=== PATIENT | female | born 1965 | race Caucasian/White ===

== ENCOUNTER 2017-04-12 12:43 | Emergency (ER) | payer OTHER ==
[~2017-04-12] VITALS: Ht 165.1 cm; Wt 60.3 kg
[2017-04-12 12:50] VITALS: TEMP 37.1; Ht 165.1 cm; Wt 60.3 kg
[2017-04-12] MEDS ORDERED: SODIUM CHLORIDE 0.9% 1000ML 1,000 ML IV STA (13:19)
[2017-04-12] MEDS ORDERED: ONDANSETRON INJ 2 MG/ML 2 ML VIAL IV STA (13:19)
[2017-04-12] MEDS ORDERED: OPTIRAY 320 IV PRN (13:30)
--- NOTE | 2017-04-12 13:45 | EMERGENCY ROOM VISIT NOTE ---
History First contact with patient: 13:05 Chief Complaint: HEADACHE Stated Complaint: WORST HEADACHE EVER, PAIN, NAUSEA History of Present Illness The patient is a 51 year old female who presents to the Emergency Room with complaints of a headache which began 3 days ago. The patient states that she had a gradual onset of a worsening headache beginning 3 days ago. She reports associated nausea, dizziness, and feeling "spacey." She states that yesterday, the headache worsens significantly throughout the day and she heard a "popping" noise in the right side of her head. She states the pain is concentrated in the right sikh. It feels like a dull pain in the entire right side of her head, with a sharp, stabbing pain in the right sikh. She does have a history of migraines but states that she has not had one in several years. She states this feels different from previous migraines. She has previously seen her primary care providers in the past and has not had an MRI of the brain. She rates her overall discomfort a 7/10. She denies any vomiting, numbness or weakness. She denies any recent illnesses or fevers/chills. She reports she is otherwise healthy and does not take any medications on a daily basis. She did not take any medications for her pain prior to coming here. Review of Systems A complete 10 point review of systems was reviewed with the patient with pertinent positives and negatives as per history of present illness. All else were negative. Past Medical/Surgical History Medical Problems: (1) Asthma Family History Cancer Gallbladder disease Heart disease Hypertension Kidney disease Kidney stones Seizures Social History Smoking Status: Never Smoker Marital Status: Housing Status: lives with family Occupation Status: employed Current/Historical Medications No Active Prescriptions or Reported Meds Allergies Coded Allergies: No Known Allergies (Verified , 04/12/17) Physical Exam Vital Signs Date Time Temp Pulse Resp B/P (MAP) Pulse Ox O2 Delivery O2 Flow Rate FiO2 04/12/17 15:59 58 16 116/65 100 04/12/17 14:50 62 20 127/75 100 Room Air 04/12/17 12:50 37.1 71 16 116/97 97 Room Air Physical Exam VITALS: Vitals are noted on the nurse's note and reviewed by myself. Vital signs stable. GENERAL: This is a 51-year-old female, in no acute distress, nondiaphoretic, well-developed well-nourished. SKIN: The skin was without rashes. HEAD: Normocephalic atraumatic. EARS: External auditory canals clear, tympanic membranes pearly erickson without erythema or effusion bilaterally. EYES: Pupils equal round and reactive to light and accommodation. Extraocular movements intact. NOSE: Patent, turbinates without inflammation or discharge. MOUTH: Mucous membranes moist. Tonsils are not enlarged. Pharynx without erythema or exudate. Tongue does not deviate. NECK: Supple without nuchal rigidity. No lymphadenopathy. No meningismus. HEART: Regular rate and rhythm without murmurs gallops or rubs. LUNGS: Clear to auscultation bilaterally without wheezes, rales or rhonchi. MUSCULOSKELETAL: Full range of motion throughout, strength 5/5 in bilateral upper and lower extremities. NEURO: Patient was alert and oriented to person place and time. Normal sensation to light and sharp touch. Deep tendon reflexes 2+ throughout. No focal neurological deficits. Normal finger to nose testing. Negative Romberg and pronator drift. Medical Decision & Procedures ER Provider Diagnostic Interpretation: CT ANGIOGRAPHY HEAD COMBO CT DOSE: 729.81 mGy.cm CLINICAL HISTORY: Severe headache. TECHNIQUE: Unenhanced images were obtained the brain. CT angiography was then performed in a dynamic fashion during intravenous administration of 94 cc of Optiray 320. MIP imaging was obtained. COMPARISON STUDY: None. FINDINGS: Unenhanced images reveal a partially calcified 10 x 2 mm left anterior parafalcine nodule. This could represent a small meningioma. No additional masses are visualized. There is no CT evidence of acute cortical infarction. There is no acute hemorrhage. There is no hydrocephalus. CT angiographic images reveal no major intracranial branch occlusions. There are no lesion suspicious for aneurysm. There is no evidence of dural venous sinus thrombosis. Postcontrast images reveal no pathologically enhancing masses. IMPRESSION: 1. No evidence of acute hemorrhage 2. No evidence of aneurysm. No evidence of dural venous sinus thrombosis. 3. 10 x 2 mm left anterior parafalcine nodule, possibly representing a small meningioma Laboratory Results 04/12/17 13:35 Red Blood Count 4.40, Mean Corpuscular Volume 90.2, Mean Corpuscular Hemoglobin 30.5, Mean Corpuscular Hemoglobin Concent 33.8, Mean Platelet Volume 9.3, Neutrophils (%) (Auto) 56.2, Lymphocytes (%) (Auto) 32.1, Monocytes (%) (Auto) 9.2, Eosinophils (%) (Auto) 1.7, Basophils (%) (Auto) 0.6, Neutrophils # (Auto) 2.62, Lymphocytes # (Auto) 1.50, Monocytes # (Auto) 0.43, Eosinophils # (Auto) 0.08, Basophils # (Auto) 0.03 04/12/17 13:35 Test 04/12/17 13:35 White Blood Count 4.67 K/uL (4.8-10.8) Red Blood Count 4.40 M/uL (4.2-5.4) Hemoglobin 13.4 g/dL (12.0-16.0) Hematocrit 39.7 % (37-47) Mean Corpuscular Volume 90.2 fL (80-100) Mean Corpuscular Hemoglobin 30.5 pg (25-34) Mean Corpuscular Hemoglobin Concent 33.8 g/dl (32-36) Platelet Count 225 K/uL (130-400) Mean Platelet Volume 9.3 fL (7.4-10.4) Neutrophils (%) (Auto) 56.2 % Lymphocytes (%) (Auto) 32.1 % Monocytes (%) (Auto) 9.2 % Eosinophils (%) (Auto) 1.7 % Basophils (%) (Auto) 0.6 % Neutrophils # (Auto) 2.62 K/uL (1.4-6.5) Lymphocytes # (Auto) 1.50 K/uL (1.2-3.4) Monocytes # (Auto) 0.43 K/uL (0.11-0.59) Eosinophils # (Auto) 0.08 K/uL (0-0.5) Basophils # (Auto) 0.03 K/uL (0-0.2) RDW Standard Deviation 41.5 fL (36.4-46.3) RDW Coefficient of Variation 12.5 % (11.5-14.5) Immature Granulocyte % (Auto) 0.2 % Immature Granulocyte # (Auto) 0.01 K/uL (0.00-0.02) Anion Gap 6.0 mmol/L (3-11) Est Creatinine Clear Calc Drug Dose 90.7 ml/min Estimated GFR () 118.5 Estimated GFR (Non- 102.3 BUN/Creatinine Ratio 19.8 (10-20) Calcium Level 9.1 mg/dl (8.5-10.1) Total Bilirubin 0.5 mg/dl (0.2-1) Aspartate Amino Transf (AST/SGOT) 10 U/L (15-37) Alanine Aminotransferase (ALT/SGPT) 16 U/L (12-78) Alkaline Phosphatase 59 U/L (45-117) Total Protein 7.7 gm/dl (6.4-8.2) Albumin 4.3 gm/dl (3.4-5.0) Globulin 3.4 gm/dl (2.5-4.0) Albumin/Globulin Ratio 1.3 (0.9-2) Medications Administered Medications (Trade) Dose Ordered Sig/Kalyn Route Start Time Stop Time Status Last Admin Dose Admin Ondansetron HCl (Zofran Inj) 4 mg NOW STAT IV 04/12/17 13:19 04/12/17 13:24 DC 04/12/17 13:42 4 MG Sodium Chloride 1,000 ml @ 999 mls/hr Q1H1M STAT IV 04/12/17 13:19 04/12/17 14:19 DC 04/12/17 13:41 999 MLS/HR Ketorolac Tromethamine (Toradol Inj) 30 mg STK-MED ONCE .ROUTE 04/12/17 15:13 04/12/17 15:14 DC 04/12/17 15:19 30 MG ED Course The patient was evaluated as above. Labs were drawn and IV access was obtained. Patient was medicated with 4 mg Zofran and 1 L normal saline solution. She declined any pain medication at this time, as she states she needs to drive home because her is not able to drive. CT/CTA of the head was performed and read by radiology as above. Patient was reevaluated and ordered 30 mg Toradol IV. Patient was reevaluated and stated she did have some improvement with the Toradol. Findings were discussed. I did offer lumbar puncture to definitively rule out SAH but the patient declined. Discharge instructions were reviewed with the patient. The patient verbalized understanding of my assessment and treatment plan and was discharged home in good condition. Medical Decision The differential diagnosis includes acute intracranial bleed, meningitis, encephalitis, mass or mass effect, sinusitis, infection, tumor, headache, temporal arteritis and carbon monoxide exposure, and migraine. The patient is a 51-year-old female who presents today complaining of a right- sided headache. The patient does report a history of migraines but states that this feels different. It did have a gradual onset, but she states it worsened significantly last night. Labs revealed no leukocytosis, anemia or concerning electrolyte abnormalities. CT and CTA of the head were performed and read by radiology. They did not show any evidence of intracranial hemorrhage or aneurysm. There was an incidental finding of a small nodule possibly consistent with a meningioma. I do not feel that this is likely causing the patient's symptoms today. She has no neurological findings on examination. I did discuss the possibility of performing a lumbar puncture to rule out subarachnoid hemorrhage, but the patient declined. I do feel that this is fairly unlikely given the patient's normal examination and negative CT/CTA. She was referred to neurology for follow-up of the CT findings as well as her headaches. Additionally, she was referred back to her primary care provider this week for a recheck and follow-up of results today. She did feel better after receiving IV Toradol and Zofran. She was instructed to continue over-the- counter treatments at home and return here if her headache worsens or if she develops any new/concerning symptoms. The patient's case was reviewed with Dr. Olsen, ED attending physician, who agreed with my assessment and treatment plan. Based on the patient's presentation and work up, I feel the patient is stable for outpatient treatment. The patient was educated to return to the emergency department for any worsening of their current condition or new/concerning symptoms. She will follow up with her PCP and neurology. Medication reconciliation: I attest that I have personally reviewed the patient 's current medication list. Blood pressure screening: Patient was found to have normal blood pressure on screening and does not require follow-up. Impression Primary Impression: Frontal headache Departure Information Dispostion Home / Self-Care Condition GOOD Prescriptions No Active Prescriptions or Reported Meds Referrals No Doctor, Assigned (PCP) Matty Palacios M.D. (MEDICINE) Patient Instructions My [facility] [employer] Additional Instructions You have been treated in the Emergency Department for a Headache. CT of your head showed no bleeding within the brain. There was a small incidental finding which should be followed by your primary care provider/ neurology. For pain control, you can use the following [id number] medicines (if >12 yo): - Regular strength (325mg/tab) Tylenol (acetaminophen) 2 tabs every 4-6 hours as needed. Do not exceed 12 tablets in a 24 hour period. Avoid taking more than 4 grams (4000 mg) of Tylenol per day. This includes any other sources of acetaminophen you may take on a regular basis. - Regular strength (200 mg/tab) Advil (ibuprofen) 1-2 tabs every 4-6 hours as needed. Do not exceed a dose of 3200 mg per day. You should relax in a quiet, dark place for the rest of the day. Avoid any possible triggers including: cigarette smoke, caffeine, nicotine, chocolate, wine, beer, loud noises or music, or bright lights. You should schedule a follow-up appointment with your primary care provider within 48 hours for further evaluation. You should also follow up with neurology. Call for appointment. Return to the Emergency Department if your current symptoms worsen despite treatment course outlined above, or if you develop any of the following symptoms : intractable pain despite aforementioned treatment course, visual disturbances , loss of vision, unilateral weakness or facial drooping, slurring of speech, loss of coordination, or loss of consciousness.
[2017-04-12 13:51] LABS: BASO % 0.6 %; BASO ABS # 0.03 K/uL (0-0.2); COMPLETE YES; EOS % 1.7 %; HEMATOCRIT 39.7 % (37-47); IG% 0.2 %; LYMPH % 32.1 %; MEAN CELL VOLUME 90.2 fL (80-100); MEAN CORPUSCULAR HEMOGLOBIN 30.5 pg (25-34); MEAN CORPUSCULAR HGB CONC 33.8 g/dl (32-36); MEAN PLATELET VOLUME 9.3 fL (7.4-10.4); MONO % 9.2 %; NEUT % 56.2 %; PLATELET COUNT 225 K/uL (130-400); WHITE BLOOD COUNT 4.67 K/uL (4.8-10.8)
[2017-04-12 14:11] LABS: BUN/CREATININE RATIO 19.8 (10-20); CALCIUM 9.1 mg/dl (8.5-10.1); CREATININE 0.66 mg/dl (0.60-1.20)
[2017-04-12 14:14] LABS: ALB/GLOB RATIO 1.3 (0.9-2)
--- NOTE | 2017-04-12 14:55 | DIAGNOSTIC IMAGING REPORT ---
CT ANGIOGRAPHY HEAD COMBO CT DOSE: 729.81 mGy.cm CLINICAL HISTORY: Severe headache. TECHNIQUE: Unenhanced images were obtained the brain. CT angiography was then performed in a dynamic fashion during intravenous administration of 94 cc of Optiray 320. MIP imaging was obtained. COMPARISON STUDY: None. FINDINGS: Unenhanced images reveal a partially calcified 10 x 2 mm left anterior parafalcine nodule. This could represent a small meningioma. No additional masses are visualized. There is no CT evidence of acute cortical infarction. There is no acute hemorrhage. There is no hydrocephalus. CT angiographic images reveal no major intracranial branch occlusions. There are no lesion suspicious for aneurysm. There is no evidence of dural venous sinus thrombosis. Postcontrast images reveal no pathologically enhancing masses. IMPRESSION: 1. No evidence of acute hemorrhage 2. No evidence of aneurysm. No evidence of dural venous sinus thrombosis. 3. 10 x 2 mm left anterior parafalcine nodule, possibly representing a small meningioma Electronically signed by: Tanner Fields M.D. 04/12/2017 2:54 PM Dictated Date/Time: 04/12/2017 2:48 PM
[2017-04-12] MEDS ORDERED: KETOROLAC TROMETHAMINE 30 MG/ML VIAL IV STA (15:01)
[2017-04-12] MEDS ORDERED: KETOROLAC TROMETHAMINE 30 MG/ML VIAL ONE (15:13)
[2017-04-12 15:59] VITALS: BP 116/65; PULSE 58; O2SAT 100
== END 2017-04-12 16:01 | disposition home or self-care (01) ==
LOC: C.EDB 12:44 → C.EDA 16:01
DX: R51 Headache (principal); J45.909 Unspecified asthma, uncomplicated; Z80.9 Family history of malignant neoplasm, unspecified; Z83.79 Family history of other diseases of the digestive system; Z82.49 Family history of ischemic heart disease and other diseases of the circulatory system; Z84.1 Family history of disorders of kidney and ureter

== ENCOUNTER 2021-04-10 16:28 | Inpatient (IN) ==
[2021-04-10] MEDS ORDERED: AMPICILLIN/SULBACTAM SOD 3,000 MG in 0.9 % SODIUM CHLORIDE 100 ML IV STA (17:07)
--- NOTE | 2021-04-10 17:14 | Emergency Department Note ---
History of Present Illness General Chief complaint: Hand Injury/Pain Stated complaint: INFECTED RIGHT HAND Time Seen by Provider: 04/10/21 16:41 Source: patient Mode of arrival: ambulatory Limitations: no limitations History of Present Illness Maximum Pain Intensity: 7 This patient is a 55-year-old left-handed female comes in after getting bit by her dog on the right hand on Wednesday. She said her dog fell through a vent in the ceiling and she went to help him and the dog is very old and blind and deaf and did not realize and he bit her on the right hand. She said his last rabies shot was about 2 years ago but she says that he has been acting normally and is inside and they have been watching him the whole time he is acting normally. She does not feel he has rabies exposure. Her tetanus shot was up-to-date and she received this when she was seen at [facility] on Wednesday. She is on Augmentin that she has been taking twice a day. Over the last 24 hours she has more swelling in her hands it hurts when she flexes or extends her fingers on the right hand. She had no fever she is in the red streaks going up her arm. She does have a Covid vaccine. No chest pain or shortness of breath. Home Medications Medication Instructions Recorded Confirmed Type amoxicillin-pot clavulanate 1 tab PO BID 04/10/21 04/10/21 History naproxen sodium [Aleve] 440 - 660 mg PO Q12H PRN 04/10/21 04/10/21 History Allergies Allergy/AdvReac Type Severity Reaction Status Date / Time No Known Allergies Allergy Mild Verified 04/10/21 18:58 Past Med/Surg History Medical History Asthma Cerebral meningioma GERD (gastroesophageal reflux disease) Pyelonephritis Surgical History H/O tubal ligation History of cholecystectomy History of colonoscopy History of foot surgery bunion with 1st MTP osteotomy Family History Father Hypertension Grandfather (Maternal) Lung cancer Social History (Updated 04/10/21 @ 19:37 by Sugar Hylton PA-C) Smoking Status: Never smoker Hx Alcohol Use: Yes Alcohol type: beer, wine and hard liquor Alcohol Intake Frequency: 2-3 x/Week Hx Substance Use: No Preferred Language: [place] marital status: Current Living Situation: Spouse current occupational status: employed 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 [employer] Feels Safe at Home: Yes Review of Systems A total of 10 systems reviewed and were otherwise negative Physical Exam Vital Signs Vital Signs - 24 hr 04/10/21 16:31 04/10/21 17:23 04/10/21 18:30 Temperature 37.0 C Temperature Source Oral Pulse Rate 86 Pulse Rate [Apical] 85 Respiratory Rate 19 18 Respiratory Effort / Characteristics Non-Labored Respiratory Depth Normal Blood Pressure 155/72 H Blood Pressure [Left Arm] 125/88 Blood Pressure Mean 99 Blood Pressure Mean [Left Arm] 100 Pulse Oximetry 99 95 98 Oxygen Delivery Method Room Air Room Air Sepsis Recent Fever Within 48 Hours No Sepsis New/Unexplained Change in Mental Status No Sepsis Action Taken by Nursing No Action Required General: Well developed well nourished middle-age female who appears in no acute distress, breathing comfortably on room air. Normal speech HEENT: Normal cephalic atraumatic. Pupils are equal round and reactive to light. Extraocular movements are intact. Oropharynx is pink with moist mucous membranes. No swelling of the mouth lips or tongue. Neck: Supple with a midline trachea. No meningeal signs or stiffness, no JVD or bruits. No Stridor. Chest: Clear to auscultation bilaterally. No wheezes or rhonchi. No increased work of breathing. Heart: Regular rate and rhythm without murmurs or gallops. Abdomen: Soft nontender, nondistended without rebound guarding or rigidity. Extremities: No cyanosis clubbing or edema. No calf tenderness or assymetry. She has 3 puncture wounds on the hand 2 on the dorsal aspect 1 at the the mid hand at the base of the second finger and also one centrally over the wrist. There is also 1 in the mid palm. There is no pus drainage. She has difficulty moving the fingers in flexion or extension secondary to pain. The area is diffusely tender in the hand but is not red or warm and there is no red streaks going up in the arm. Spine/Back. Non tender to palpation. No CVA tenderness Skin: Good turgor without rashes. Neurologic exam: Nonfocal, limited in the right hand secondary to pain Course Administered Medications Discontinued Medications Ampicillin Sodium/Sulbactam Sodium 3,000 mg/ Sodium Chloride 108 mls @ 200 mls/hr IV NOW STA; Protocol Stop: 04/10/21 17:39 Last Infusion: 04/10/21 18:25 Dose: 0 mls/hr Documented by: [id number] Admin: 04/10/21 17:42 Dose: 200 mls/hr Documented by: [id number] Medical Decision Making Differential Diagnosis Cellulitis, cat bite, foreign body, abscess, deep hand space infection Medical Records Attestation: I reviewed the patient's medical records. Home Medications Current Medication List: was personally reviewed by me Laboratory Data Attestation: I reviewed the patient's lab results. Result diagrams: 04/10/21 17:26 04/10/21 17:26 Lab Results 04/10/21 04/10/21 04/10/21 Range/Units 17:26 17:26 17:26 WBC 5.46 (4.8-10.8) K/uL RBC 4.14 L (4.2-5.4) M/uL Hgb 12.7 (12.0-16.0) g/dL Hct 37.1 (37-47) % MCV 89.6 (80-100) fL MCH 30.7 (25-34) pg MCHC 34.2 (32-36) g/dL RDW Std Deviation 42.3 (36.4-46.3) fL RDW Coeff of Simon 13.0 (11.5-14.5) % Plt Count 285 (130-400) K/uL MPV 9.4 (7.4-10.4) fL Immature Gran % (Auto) 0.4 % Neut % (Auto) 54.9 % Lymph % (Auto) 33.7 % Shelby % (Auto) 8.6 % Eos % (Auto) 2.0 % Baso % (Auto) 0.4 % Neut # (Auto) 3.00 (1.4-6.5) K/uL Lymph # (Auto) 1.84 (1.2-3.4) K/uL Shelby # (Auto) 0.47 (0.11-0.59) K/uL Eos # (Auto) 0.11 (0-0.5) K/uL Baso # (Auto) 0.02 (0-0.2) K/uL Immature Gran # (Auto) 0.02 (0.00-0.02) K/uL Sodium 139 (136-145) mmol/L Potassium 3.5 (3.5-5.1) mmol/L Chloride 105 (98-107) mmol/L Carbon Dioxide 27 (21-32) mmol/L Anion Gap 7.0 (3-11) BUN 15 (7-18) mg/dl Creatinine 0.59 L (0.6-1.2) mg/dl Est Cr Clr Drug Dosing 96.9 ml/min Est GFR ( Amer) 119.6 ml/min Est GFR (Non-Af Amer) 103.2 ml/min BUN/Creatinine Ratio 25.7 H (10-20) Glucose 89 (70-99) mg/dl Lactate 0.7 (0.4-2.0) mmol/L Calcium 9.4 (8.5-10.1) mg/dl Magnesium 2.0 (1.8-2.4) mg/dl Total Bilirubin 0.5 (0.2-1) mg/dl AST 11 L (15-37) U/L ALT 15 (12-78) U/L Alkaline Phosphatase 79 (45-117) U/L Total Protein 7.8 (6.4-8.2) gm/dl Albumin 4.1 (3.4-5.0) gm/dl Globulin 3.7 (2.5-4.0) gm/dl Albumin/Globulin Ratio 1.1 (0.9-2) COVID-19 Eval Order SARS-CoV-2 (PCR) (Negative) 04/10/21 04/10/21 Range/Units 19:00 19:00 WBC (4.8-10.8) K/uL RBC (4.2-5.4) M/uL Hgb (12.0-16.0) g/dL Hct (37-47) % MCV (80-100) fL MCH (25-34) pg MCHC (32-36) g/dL RDW Std Deviation (36.4-46.3) fL RDW Coeff of Simon (11.5-14.5) % Plt Count (130-400) K/uL MPV (7.4-10.4) fL Immature Gran % (Auto) % Neut % (Auto) % Lymph % (Auto) % Shelby % (Auto) % Eos % (Auto) % Baso % (Auto) % Neut # (Auto) (1.4-6.5) K/uL Lymph # (Auto) (1.2-3.4) K/uL Shelby # (Auto) (0.11-0.59) K/uL Eos # (Auto) (0-0.5) K/uL Baso # (Auto) (0-0.2) K/uL Immature Gran # (Auto) (0.00-0.02) K/uL Sodium (136-145) mmol/L Potassium (3.5-5.1) mmol/L Chloride (98-107) mmol/L Carbon Dioxide (21-32) mmol/L Anion Gap (3-11) BUN (7-18) mg/dl Creatinine (0.6-1.2) mg/dl Est Cr Clr Drug Dosing ml/min Est GFR ( Amer) ml/min Est GFR (Non-Af Amer) ml/min BUN/Creatinine Ratio (10-20) Glucose (70-99) mg/dl Lactate (0.4-2.0) mmol/L Calcium (8.5-10.1) mg/dl Magnesium (1.8-2.4) mg/dl Total Bilirubin (0.2-1) mg/dl AST (15-37) U/L ALT (12-78) U/L Alkaline Phosphatase (45-117) U/L Total Protein (6.4-8.2) gm/dl Albumin (3.4-5.0) gm/dl Globulin (2.5-4.0) gm/dl Albumin/Globulin Ratio (0.9-2) COVID-19 Eval Order Covid19 at [facility] SARS-CoV-2 (PCR) POSITIVE A* (Negative) Imaging Data Attestation: I personally reviewed and interpreted this imaging study as follows: My Impression: Right hand x-rayno foreign body or fracture or air seen Radiologist's Impression: Hand X-Ray 04/10/21 17:09 XR hand RT min 3V routine CLINICAL HISTORY: Right hand pain status post trauma. Dog bite. COMPARISON: None. DISCUSSION: No acute fractures or dislocations are visualized. There is mild soft tissue edema. No radiopaque foreign bodies are visualized. IMPRESSION: 1. No acute fractures 2. No radiopaque foreign bodies identified 3. Mild soft tissue edema ACT 112: Negative or not required by law. Electronically signed by: Tanner Fields M.D. 04/10/2021 6:11 PM MDM Narrative This patient comes in after being bit by a dog on Wednesday. She started on antibiotics on Wednesday she got worse over last 48 hours she has swelling in her right hand otherwise no particular red or warm IV access established I did a sepsis type work-up although her vital signs look stable she was given Unasyn 3 g IV. I did an x-ray as well. She was reassessed frequently. X-rays do not show any fracture or foreign body or air. Her white count is not elevated nor is her lactic acid. She does have significant swelling of her right hand and she says that despite taking antibiotics icing it and wrapping it she feels the symptoms are getting worse. In light of this, I do think she would benefit from inpatient treatment IV antibiotics observation and potentially orthopedic consultation. I have consulted the [facility] hospitalist to see her in the ER for these measures. She was also order Covid testing given that she will be admitted and it was positive unexpectedly, she tells me she did have Covid back in January. Impression & Plan Animal bite of right hand with infection, Dog bite, Hand pain, right, Swelling of joint of right hand, Up to date with diphtheria-tetanus vaccination, Lab test positive for detection of COVID-19 virus Discharge Plan Visit Data Chief Complaint: Hand Injury/Pain Stated Complaint: INFECTED RIGHT HAND ED Provider: Nikhil Snyder Discharge Problem: Animal bite of right hand with infection, Dog bite, Hand pain, right, Swelling of joint of right hand, Up to date with diphtheria-tetanus vaccination, Lab test positive for detection of COVID-19 virus Forms Stand Alone Forms: [employer] Prescriptions Prescriptions: No Action naproxen sodium [Aleve] 220 mg Tablet 440 - 660 mg PO Q12H PRN (Reason: Pain) RF: 0 amoxicillin-pot clavulanate 875-125 mg tablet 1 tab PO BID RF: 0 Discharge Problem: Animal bite of right hand with infection Qualifiers: Encounter type: initial encounter Qualified Code(s): S61.451A - Open bite of right hand, initial encounter Dog bite Qualifiers: Encounter type: initial encounter Qualified Code(s): W54.0XXA - Bitten by dog, initial encounter
[2021-04-10 17:39] LABS: Basophils # (auto) 0.02 K/uL (0-0.2); Basophils % (auto) 0.4 %; Eosinophils # (auto) 0.11 K/uL (0-0.5); Hematocrit (blood only) 37.1 % (37-47); Hemoglobin 12.7 g/dL (12.0-16.0); Immature Granulocytes # (auto) 0.02 K/uL (0.00-0.02); Immature Granulocytes % (auto) 0.4 %; Lymphocytes # (auto) 1.84 K/uL (1.2-3.4); Lymphocytes % (auto) 33.7 %; Mean Corpuscular Hemoglobin 30.7 pg (25-34); Mean Corpuscular Hgb Conc 34.2 g/dL (32-36); Mean Corpuscular Volume 89.6 fL (80-100); Mean Platelet Volume 9.4 fL (7.4-10.4); Monocytes # (auto) 0.47 K/uL (0.11-0.59); Monocytes % (auto) 8.6 %; Neutrophils % (auto) 54.9 %; Platelet Count 285 K/uL (130-400); RDW Standard Deviation 42.3 fL (36.4-46.3); Red Blood Count 4.14 M/uL (4.2-5.4); White Blood Count 5.46 K/uL (4.8-10.8)
[2021-04-10 17:56] LABS: Albumin Level 4.1 gm/dl (3.4-5.0); BUN Creatinine Ratio 25.7 (10-20); Calcium 9.4 mg/dl (8.5-10.1); Creatinine Clr Calc Pharmacy 96.9 ml/min; Est GFR (African American) 119.6 ml/min; Est GFR (Non-African American) 103.2 ml/min; Potassium 3.5 mmol/L (3.5-5.1)
[2021-04-10 17:59] LABS: Albumin Globulin Ratio 1.1 (0.9-2); Bilirubin,Total 0.5 mg/dl (0.2-1); Globulin 3.7 gm/dl (2.5-4.0); Total Protein 7.8 gm/dl (6.4-8.2)
--- NOTE | 2021-04-10 18:12 | XRay Report ---
XR hand RT min 3V routine CLINICAL HISTORY: Right hand pain status post trauma. Dog bite. COMPARISON: None. DISCUSSION: No acute fractures or dislocations are visualized. There is mild soft tissue edema. No ra diopaque foreign bodies are visualized. IMPRESSION: 1. No acute fractures 2. No radiopaque foreign bodies identified 3. Mild soft tissue edema ACT 112: Negative or not required by law. Electronically signed by: Tanner Fields M.D. 04/10/2021 6:11 PM
--- NOTE | 2021-04-10 19:41 | History & Physical Report ---
Date of Service April 10, 2021 Assessment & Plan (1) Dog bite: (2) Lymphangitis: (3) Failure of outpatient treatment: (4) DVT prophylaxis: 55 yr old otherwise healthy female presents with dog bite which she sustained on Thursday 04/05. Started on Augmentin 04/06, received TDAP vaccine 04/07. Dog is not vaccinated against rabies. admit to med/surg continue IV unasyn obtain MRI R hand consult orthopedics Dr. Farrar NPO after midnight in event procedure warranted APAP, IV toradol prn pain TDAP UTD, will need to monitor dog for 10 days if any concern for rabies will need to obtain treatment rabies ppx not warranted at this time DISPO: med surg PCP: Bryson Gonzalez FULL CODE Pt was seen and examined in collaboration with Dr. Alberto, please see addendum History of Present Illness Chief Complaint: Dog bite x 5 days. Primary Care Provider: Marie Gonzalez This is a 55 yr old healthy female who presents to ED 12/03 to dog bite on R hand she sustained 5 days ago. 24hr post bite she developed fever and therefore went to urgent care. She was prescribed Augmentin which she has been compliant with the past 4 days. She has increased pain to R hand, swelling, inability to flex and fingers and redness that extends up to the elbow. Due to redness extending to elbow was the reason she decided to head to ED. She has been using OTC tylenol and nsaids for pain. She received Tdap vaccine on wednesday. The dog is not up to date on vaccine against rabies and is a house dog. at bedside and are not concerned and not interested in rabies ppx. She denies f/c/s, dizziness, lightheaded, chest pain, sob, n/v/d, abdominal pain. Overall appetite has been good. She is otherwise healthy and does not take any medications. She denies tobacco use and does use ETOH ~ 3x/week. Allergies Allergy/AdvReac Type Severity Reaction Status Date / Time No Known Allergies Allergy Mild Verified 04/10/21 18:58 Home Medications Medication Instructions Recorded Confirmed Type amoxicillin-pot clavulanate 1 tab PO BID 04/10/21 04/10/21 History naproxen sodium [Aleve] 440 - 660 mg PO Q12H PRN 04/10/21 04/10/21 History Past Med/Surg History Medical History Asthma Cerebral meningioma GERD (gastroesophageal reflux disease) Pyelonephritis Surgical History H/O tubal ligation History of cholecystectomy History of colonoscopy History of foot surgery bunion with 1st MTP osteotomy Family History Father Hypertension Grandfather (Maternal) Lung cancer Social History (Updated 04/10/21 @ 19:37 by Sugar Hylton PA-C) Smoking Status: Never smoker Second Hand Exposure: No; Do You Dip or Chew Tobacco: No; Hx Alcohol Use: Yes Alcohol type: beer, wine and hard liquor Alcohol Intake Frequency: 2-3 x/Week Hx Substance Use: No Preferred Language: Gibraltarian Communication Ability: Effective Shift Commander Required: No Beliefs That Will Affect Care: None marital status: Current Living Situation: Significant Other current occupational status: employed 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 [employer] Other Information That Helps Us Care for You: No Feels Safe at Home: Yes Assistive Devices: None Review of Systems Review of Systems: All systems reviewed & are unremarkable except as noted in HPI & below Physical Exam Constitutional: WD/WN, vitals as above Eyes: PERRL, conjunctivae normal, anicteric sclerae ENMT: external ear and nose normal, oropharynx normal Neck: trachea midline, no thyromegaly Respiratory: normal respiratory effort, lungs clear to auscultation Cardiovascular: RRR, no murmur, no edema Gastrointestinal (Abdomen): normal bowel sounds, soft, nontender, no hepatosplenomegaly Musculoskeletal: no cyanosis or clubbing, extremities motor strength 5/5 Extremities: + hand abnormality Right (RUE Dorsal hand with evidence of dog bite, erythematous, swollen dorsum of extending to digits, inability to flex fingers, redness extending to medial aspect of elbow, + lymphangitis) Skin: no rashes, warm and dry Neurologic: PERRL, EOMI, accommodation nl, no face palsy, no dysarthria Psychiatric: A+Ox3, euthymic affect Lymphatic: epitrochlear adenopathy on R Results & Data Results & Data ([facility]) Vital Signs (Past 12 Hours) Vital Signs Temp Pulse Resp BP Pulse Ox 04/10/21 17:23 95 04/10/21 16:31 37.0 C 86 19 155/72 H 99 Diagnostic Findings Hand X-Ray 04/10/21 17:09 XR hand RT min 3V routine CLINICAL HISTORY: Right hand pain status post trauma. Dog bite. COMPARISON: None. DISCUSSION: No acute fractures or dislocations are visualized. There is mild soft tissue edema. No radiopaque foreign bodies are visualized. IMPRESSION: 1. No acute fractures 2. No radiopaque foreign bodies identified 3. Mild soft tissue edema ACT 112: Negative or not required by law. Electronically signed by: Tanner Fields M.D. 04/10/2021 6:11 PM Medications Administered Medication List Discontinued Medications Ampicillin Sodium/Sulbactam Sodium 3,000 mg/ Sodium Chloride 108 mls @ 200 mls/hr IV NOW STA; Protocol Stop: 04/10/21 17:39 Last Infusion: 04/10/21 18:25 Dose: 0 mls/hr Documented by: [id number] Admin: 04/10/21 17:42 Dose: 200 mls/hr Documented by: [id number] COVID-19 Results Results COVID-19 Adm Lab Results: RBC 3.79 M/uL (4.2-5.4) L 04/11/21 WBC 4.03 K/uL (4.8-10.8) L 04/11/21 Hgb 11.7 g/dL (12.0-16.0) L 04/11/21 Hct 34.4 % (37-47) L 04/11/21 Plt Count 278 K/uL (130-400) 04/11/21 Neutrophils (%) (Auto) 46.9 % 04/11/21 Lymphocytes (%) (Auto) 39.7 % 04/11/21 Monocytes # (Auto) 0.35 K/uL (0.11-0.59) 04/11/21 Eosinophils # (Auto) 0.16 K/uL (0-0.5) 04/11/21 Immature Granulocyte % (Auto) 0.2 % 04/11/21 Neutrophils # (Auto) 1.89 K/uL (1.4-6.5) 04/11/21 Lymphocytes # (Auto) 1.60 K/uL (1.2-3.4) 04/11/21 Monocytes # (Auto) 0.35 K/uL (0.11-0.59) 04/11/21 Eosinophils # (Auto) 0.16 K/uL (0-0.5) 04/11/21 Basophils # (Auto) 0.02 K/uL (0-0.2) 04/11/21 Immature Granulocyte # (Auto) 0.01 K/uL (0.00-0.02) 04/11/21 Na 140 mmol/L (136-145) 04/11/21 K 3.7 mmol/L (3.5-5.1) 04/11/21 Cl 107 mmol/L (98-107) 04/11/21 CO2 26 mmol/L (21-32) 04/11/21 Anion Gap 6.0 (3-11) 04/11/21 BUN 18 mg/dl (7-18) 04/11/21 Creatinine 0.56 mg/dl (0.6-1.2) L 04/11/21 BUN/Creatinine Ratio 32.4 (10-20) H 04/11/21 Glucose Level 83 mg/dl (70-99) 04/11/21 Ca 9.3 mg/dl (8.5-10.1) 04/11/21 Total Bilirubin 0.5 mg/dl (0.2-1) 04/10/21 AST/SGOT 11 U/L (15-37) L 04/10/21 ALT/SGPT 15 U/L (12-78) 04/10/21 Alkaline Phosphatase 79 U/L (45-117) 04/10/21 Total Protein 7.8 gm/dl (6.4-8.2) 04/10/21 Albumin 4.1 gm/dl (3.4-5.0) 04/10/21 Globulin 3.7 gm/dl (2.5-4.0) 04/10/21 Albumin/Globulin Ratio 1.1 (0.9-2) 04/10/21 CRP 1.23 mg/dl (0-0.29) H 04/11/21 COVID-19 PCR POSITIVE (Negative) A* 04/10/21 Code Status & VTE Plan Code Status Full Code VTE Prophylaxis Plan VTE Prophylaxis will be ordered: No Supervising Physician Co-Signing Physician Notes Care coordinated with Sugar Hylton PA-C. Agree with above note. Patient seen and examined. Please refer to her notes for full details. Vital signs reviewed. Physical exam: General exam: Alert and oriented. Not in acute distress. CVS: S1 and S2 heard, regular rate and rhythm, no murmurs. RS: Clear to auscultation, no wheezing or crackles. ABD: Soft, bowel sounds present, nontender, no distention. LEAD ASSEMBLER: Nonfocal. EXT: right hand edema and erythema seen on dorsal aspect. Can move fingers. Labs: Reviewed. Assessment and plan: 55Y F presents with dog bite by her home dog last wednesday. Was in Urgent care. Received tdap vaccine.Placed on augmentin. But Right and got more swollen and erythematus and came to ER. Started on Unasyn. Seems improving. But developing itching probably from unasyn though tolerated augmentin as out patinet. Changed antibiotics to clindamycin and doxcyline. ortho consulted. Her home dog not vaccinated for last couple of years. Advised to close monitor dog for 10 days and to report if any change in dog condition. She was covid positive in ER. Patinet currently asymptomatic. Saturating fine on room air.Will get cxr. Patient says she was sick with Covid in January. Probably false positive form infection in January. But will do covid isolation for now. Other diagnosis and plan of care as per DANIEL Romero MD.
[2021-04-10] MEDS ORDERED: ONDANSETRON INJ 2 MG/ML 2 ML VIAL IV PRN (21:53)
[2021-04-10] MEDS ORDERED: MAGNESIUM HYDROXIDE SUSP 30 ML UDC PO PRN (21:53)
[2021-04-10] MEDS ORDERED: POLYETHYLENE (MIRALAX) 17 GM PACK PO PRN (21:53)
[2021-04-10] MEDS ORDERED: ALUMINUM/MAGNESIUM SUSP 30 ML UDC PO PRN (21:53)
[2021-04-10] MEDS: ACETAMINOPHEN 325 MG TAB PO PRN (22:16)
[2021-04-10] MEDS ORDERED: diphenhydrAMINE Capsule 25 MG CAP PO ONE (22:53)
[2021-04-10] MEDS: AMPICILLIN/SULBACTAM SOD 3,000 MG in 0.9 % SODIUM CHLORIDE 100 ML IV SCH (23:56)
[2021-04-11] MEDS: KETOROLAC TROMETHAMINE 15 MG/ML VIAL IV PRN ×2 (04:08→17:24)
[2021-04-11] MEDS: AMPICILLIN/SULBACTAM SOD 3,000 MG in 0.9 % SODIUM CHLORIDE 100 ML IV SCH (05:04)
[2021-04-11] MEDS: DOXYCYCLINE HYCLATE 100 MG in DEXTROSE 5% 100 ML IV SCH ×2 (06:24→19:03)
[2021-04-11] MEDS: CLINDAMYCIN 600 MG in DEXTROSE 5% 50 ML IV SCH ×2 (06:24→14:56)
[2021-04-11 07:05] LABS: Basophils # (auto) 0.02 K/uL (0-0.2); Basophils % (auto) 0.5 %; Eosinophils # (auto) 0.16 K/uL (0-0.5); Hematocrit (blood only) 34.4 % (37-47); Hemoglobin 11.7 g/dL (12.0-16.0); Immature Granulocytes # (auto) 0.01 K/uL (0.00-0.02); Immature Granulocytes % (auto) 0.2 %; Lymphocytes % (auto) 39.7 %; Mean Corpuscular Hemoglobin 30.9 pg (25-34); Mean Corpuscular Volume 90.8 fL (80-100); Mean Platelet Volume 9.3 fL (7.4-10.4); Monocytes # (auto) 0.35 K/uL (0.11-0.59); Monocytes % (auto) 8.7 %; Neutrophils # (auto) 1.89 K/uL (1.4-6.5); Neutrophils % (auto) 46.9 %; Platelet Count 278 K/uL (130-400); RDW Coefficient of Variation 12.9 % (11.5-14.5); RDW Standard Deviation 43.3 fL (36.4-46.3); Red Blood Count 3.79 M/uL (4.2-5.4); White Blood Count 4.03 K/uL (4.8-10.8)
[2021-04-11 07:14] LABS: BUN Creatinine Ratio 32.4 (10-20); C Reactive Protein 1.23 mg/dl (0-0.29); Calcium 9.3 mg/dl (8.5-10.1); Creatinine Clr Calc Pharmacy 102.1 ml/min; Est GFR (African American) 121.7 ml/min; Magnesium 2.3 mg/dl (1.8-2.4); Potassium 3.7 mmol/L (3.5-5.1)
--- NOTE | 2021-04-11 10:10 | Orthopedic Consultation ---
Date of Service April 11, 2021 Assessment & Plan (1) Animal bite of right hand with infection: Recommend continue nonoperative management with parenteral IV therapy and strict elevation. I encouraged digital active and passive range of motion. She has made dramatic improvement in less than 24 hours of antibiotics. Advanced imaging is on hold due to her Covid positivity, asymptomatic. I think there is as much value in an additional 24 hours of IV antibiotics as there is advanced imaging at this point. The lingering concern is if there is any flexor tenosynovitis that would not resolve with antibiotics in the long finger. Serial exam was warranted. Certainly her exam shows interval improvement, and her labs support continued nonop management. I canceled the n.p.o. today. No plans for surgery today. She should renew n.p.o. status overnight tonight in case her exam worsens or not significantly improved for that long finger flexor tendon. We will continue to follow. History of Present Illness Reason for Consultation: Right hand dog bite Requesting Physician: . Attending Physician: Marc Pate MD 55 yr old otherwise healthy female presents with dog bite which she sustained on Thursday 04/05. Started on Augmentin 04/06, received TDAP vaccine 04/07. Dog is not vaccinated against rabies. She was admitted to the hospital last evening and started on parenteral antibiotic therapy. She reports today that symptoms are much improved. She states that she had pain and some erythema that was advancing up her forearm to her the level of her elbow. She also states she had dramatic swelling that has since improved overnight with the IV antibiotics. She still has pain located over the middle finger and difficulty with flexion extension because of this pain. She does say that his pain is improving. Prior to admission she had significant swelling. She reports dramatic drainage that she expressed. She said there was a physician at work that recommended evaluation of the ER for IV antibiotics given that she had not made much improvement after several days on oral Augmentin. Allergies Allergy/AdvReac Type Severity Reaction Status Date / Time No Known Allergies Allergy Mild Verified 04/10/21 18:58 Home Medications Medication Instructions Recorded Confirmed Type amoxicillin-pot clavulanate 1 tab PO BID 04/10/21 04/10/21 History naproxen sodium [Aleve] 440 - 660 mg PO Q12H PRN 04/10/21 04/10/21 History Past Med/Surg History Medical History Asthma Cerebral meningioma GERD (gastroesophageal reflux disease) Pyelonephritis Surgical History H/O tubal ligation History of cholecystectomy History of colonoscopy History of foot surgery bunion with 1st MTP osteotomy Family History Father Hypertension Grandfather (Maternal) Lung cancer Social History Smoking Status: Never smoker Second Hand Exposure: No; Do You Dip or Chew Tobacco: No; Hx Alcohol Use: Yes Alcohol type: beer, wine and hard liquor Alcohol Intake Frequency: 2-3 x/Week Hx Substance Use: No Preferred Language: Upper Sorbian Communication Ability: Effective Manager Research And Development Required: No Beliefs That Will Affect Care: None marital status: Current Living Situation: Significant Other current occupational status: employed 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 Physical Exam Right upper: Diffuse swelling over the dorsum of the hand and extending down into each digit including thumb. There is definition at the skin creases. There is focal tenderness at the site of the palmar punctate wound which is in line with margin of the long finger flexor tendon sheath. There is no proximal tenderness towards the carpal tunnel or more proximal in the forearm. She does have mild tenderness along the palmar side of the long digit finger. She is irritable with flexion extension of the IP joints in the long finger. She is more tolerable of the remaining digits with active and passive range of motion. She is unable to make composite fist mostly due to loss of MP flexion. There is minimal erythema throughout the hand. There are 2 punctate wounds multiple palmar and dorsal sides. These have eschar but there is some expressible drainage from the dorsal side. There is also small punctate wounds more distally in the fingers. It seems superficial. Constitutional well developed and well nourished; no acute distress and not intoxicated a ppearing ENMT external ear and nose normal, oropharynx normal Respiratory normal respiratory effort; no respiratory distress Cardiovascular Extremities: normal capillary refill; no edema Skin no rashes, warm and dry Psychiatric A+Ox3, euthymic affect Results & Data Results & Data Laboratory Results H & H Laboratory Tests 04/10/21 04/11/21 04/11/21 17:26 06:22 06:22 WBC 5.46 ESR 25 C-Reactive Protein 1.23 H 04/11/21 06:22 WBC 4.03 L ESR C-Reactive Protein 04/10/21 04/11/21 Range/Units 17:26 06:22 Hgb 12.7 11.7 L (12.0-16.0) g/dL Hct 37.1 34.4 L (37-47) % . Diagnostic Findings Right hand x-rays include 3 views AP lateral and oblique. These demonstrate no foreign body. There are no acute fracture or bone changes. There is dorsal soft tissue swelling. PG Care Time/CCT Total # of Minutes Spent Total Time Spent with Patient: Total time spent is greater than 50% in coordination of care (as documented) at patient's floor/unit and/or counseling patient: Coding Level of Care Code 98915 Inpt Consult Level 4 Diagnoses Animal bite of right hand with infection S61.451A; L08.9 Encounter type: initial encounter (1) Animal bite of right hand with infection Encounter type: initial encounter Qualified Code(s): S61.451A - Open bite of right hand, initial encounter; L08.9 - Local infection of the skin and subcutaneous tissue, unspecified
--- NOTE | 2021-04-11 15:54 | Hospitalist Progress Note ---
Date of Service April 11, 2021 Assessment & Plan (1) Dog bite: (2) Lymphangitis: (3) Failure of outpatient treatment: (4) DVT prophylaxis: Patient is a 55 yr female who presents with dog bite which she sustained on Thursday 04/05. Patient received Augmentin on 04/06, received TDAP vaccine 04/07. Dog is not vaccinated against rabies. Right Hand Cellulitis-POA Tenosynovitis Secondary to Dog bite S/P TDAP Vaccine on April 07 2021 -Hand X ray: No acute fractures. No radiopaque foreign bodies identified. Mild soft tissue edema Blood cultures pending -Pain control Continue Clindamycin, doxycycline given allergy to penicillin Follow-up culture Appreciate orthopedics input N.p.o. after midnight for possible procedure tomorrow Recent COVID Infection Positive COVID screen Asymptomatic Saturating well on room air Patient refuses chest x-ray as asymptomatic No indication for treatment currently DVT Px: SCDs CODE STATUS Full code Admission and Anticipated Discharge Date Admission Date: April 10, 2021 Subjective Patient is seen and examined at bedside Right hand pain is controlled States having some stiffness with finger movement Swelling, erythema improved Denies chest pain, shortness of breath, dizziness, nausea, abdominal pain, tingling or numbness of fingers. Review of Systems Review of Systems: All systems reviewed & are unremarkable except as noted in HPI & below Physical Exam Physical Exam: Physical Exam: Vitals signs as noted above General Appearance:Moderately built and nourished, no apparent distress Head: normocephalic, Atraumatic Eyes: normal inspection, EOMI Neck: supple, Trachea midline Respiratory/Chest: Normal breath sounds, CTA Cardiovascular: S1, S2, No murmur Abdomen/GI:Soft, Non tender, Bowel sounds present Extremities/Musculoskeletal:normal inspection, Right Hand swollen, tender, decreased ROM, +Bite angelina Neurologic/Psych:AAOX3, grossly no focal neurological deficits Skin: normal color, warm Results & Data Results & Data ([facility]) Vital Signs (Past 12 Hours) Vital Signs Temp Pulse Resp BP Pulse Ox 04/11/21 08:18 36.6 C 64 18 115/70 97 Laboratory Results Short CBC 04/10/21 04/11/21 Range/Units 17:26 06:22 WBC 5.46 4.03 L (4.8-10.8) K/uL Hgb 12.7 11.7 L (12.0-16.0) g/dL Hct 37.1 34.4 L (37-47) % Plt Count 285 278 (130-400) K/uL BMP 04/10/21 04/11/21 04/11/21 17:26 06:22 06:22 Sodium 139 140 Cancelled Potassium 3.5 3.7 Cancelled Chloride 105 107 Cancelled Carbon Dioxide 27 26 Cancelled BUN 15 18 Cancelled Creatinine 0.59 L 0.56 L Cancelled Glucose 89 83 Cancelled Calcium 9.4 9.3 Cancelled Liver Function 04/10/21 Range/Units 17:26 Total Bilirubin 0.5 (0.2-1) mg/dl AST 11 L (15-37) U/L ALT 15 (12-78) U/L Alkaline Phosphatase 79 (45-117) U/L Albumin 4.1 (3.4-5.0) gm/dl (1) Dog bite Encounter type: initial encounter Qualified Code(s): W54.0XXA - Bitten by dog, initial encounter
[2021-04-12] MEDS: CLINDAMYCIN 600 MG in DEXTROSE 5% 50 ML IV SCH ×3 (00:52→16:08)
[2021-04-12] MEDS: DOXYCYCLINE HYCLATE 100 MG in DEXTROSE 5% 100 ML IV SCH ×2 (05:31→16:52)
[2021-04-12] MEDS: ACETAMINOPHEN 325 MG TAB PO PRN (07:35)
[2021-04-12 08:02] LABS: Basophils # (auto) 0.02 K/uL (0-0.2); Basophils % (auto) 0.5 %; Eosinophils # (auto) 0.15 K/uL (0-0.5); Eosinophils % (auto) 3.8 %; Hematocrit (blood only) 35.6 % (37-47); Hemoglobin 12.1 g/dL (12.0-16.0); Immature Granulocytes # (auto) 0.01 K/uL (0.00-0.02); Immature Granulocytes % (auto) 0.3 %; Lymphocytes # (auto) 1.56 K/uL (1.2-3.4); Lymphocytes % (auto) 39.4 %; Mean Corpuscular Hemoglobin 30.8 pg (25-34); Mean Corpuscular Volume 90.6 fL (80-100); Mean Platelet Volume 9.3 fL (7.4-10.4); Monocytes # (auto) 0.33 K/uL (0.11-0.59); Monocytes % (auto) 8.3 %; Neutrophils # (auto) 1.89 K/uL (1.4-6.5); Neutrophils % (auto) 47.7 %; Platelet Count 280 K/uL (130-400); RDW Coefficient of Variation 12.8 % (11.5-14.5); Red Blood Count 3.93 M/uL (4.2-5.4); White Blood Count 3.96 K/uL (4.8-10.8)
[2021-04-12 08:19] LABS: BUN Creatinine Ratio 23.1 (10-20); C Reactive Protein 0.65 mg/dl (0-0.29); Calcium 9.4 mg/dl (8.5-10.1); Creatinine Clr Calc Pharmacy 93.8 ml/min; Est GFR (African American) 118.3 ml/min; Est GFR (Non-African American) 102.1 ml/min; Potassium 3.7 mmol/L (3.5-5.1)
--- NOTE | 2021-04-12 09:03 | Orthopedic Progress Note ---
Date of Service April 12, 2021 Assessment & Plan (1) Animal bite of right hand with infection: Continued improvement with parenteral therapy. Recommend continued nonoperative management with parenteral IV therapy and strict elevation. No surgery today. Today, I would add 3 times daily warm soapy water soaks for 20-30 minutes for range of motion and soft tissue massage by the patient. This may open up those dried eschars for further drainage improve MP and IP motion. I canceled the n.p.o. again today. She should renew n.p.o. status overnight tonight until morning exam. Recommend at least another 24 hours of IV antibiotics. If she continues on current trajectory, she may be able to transition to oral equivalent antibiotic tomorrow. We will continue to follow. I discussed my recommendations with the patient. Subjective Marnie reports improved pain, but she still concerned about her long finger. She says that she is doing range of motion exercises throughout the yesterday. Antibiotics continue. Denies any fevers chills nor respiratory symptoms. Review of Systems All systems reviewed & are unremarkable except as noted in HPI & below. Physical Exam Right upper extremity: The hand has reduced and edema throughout the dorsum. The punctate wound on the dorsal side of her hand has a dried eschar. Remains some focalized soft tissue swelling about that wound but is minimally tender today, which is an improvement. The palmar side is also decompressed. She remains with tenderness over that palmar punctate wound. She has improved finger motion in general. The long finger still irritable at the MP joint. The long finger motions improved with passive flexion to about 90 degrees at the PIP, and nearly full DIP active and passive motion with minimal irritability which is a substantial improvement. There is less edema throughout the long finger and has even further improved definition of the finger creases. Constitutional WD/WN, vitals as above no acute distress and not intoxicated appearing Respiratory normal respiratory effort; no labored breathing Cardiovascular Extremities: normal capillary refill Results & Data Results & Data Laboratory Results . Laboratory Tests 04/12/21 04/12/21 07:24 07:24 WBC 3.96 L Neut % (Auto) 47.7 C-Reactive Protein Pending Microbiology 04/10/21 17:26 Aerobic Blood Culture - Preliminary Blood No growth in Aerobic bottle after 24 hours. Anaerobic Blood Culture - Preliminary No growth in Anaerobic bottle after 24 hours. 04/10/21 17:28 Aerobic Blood Culture - Preliminary Blood No growth in Aerobic bottle after 24 hours. Anaerobic Blood Culture - Preliminary No growth in Anaerobic bottle after 24 hours. Diagnostic Findings . PG Care Time/CCT Total # of Minutes Spent Total Time Spent with Patient: Total time spent is greater than 50% in coordination of care (as documented) at patient's floor/unit and/or counseling patient: Coding Level of Care Code 48594 Subseq Hosp Care Lvl 3 Diagnoses Animal bite of right hand with infection S61.451A; L08.9 Encounter type: initial encounter (1) Animal bite of right hand with infection Encounter type: initial encounter Qualified Code(s): S61.451A - Open bite of right hand, initial encounter; L08.9 - Local infection of the skin and subcutaneous tissue, unspecified
[2021-04-12] MEDS: KETOROLAC TROMETHAMINE 15 MG/ML VIAL IV PRN ×2 (14:06→20:35)
--- NOTE | 2021-04-12 14:19 | Hospitalist Progress Note ---
Date of Service April 12, 2021 Assessment & Plan (1) Cellulitis of right hand excluding fingers and thumb: Patient is a 55 yr female who presents with dog bite which she sustained on Thursday 04/05. Patient received Augmentin on 04/06, received TDAP vaccine 04/07. Dog is not vaccinated against rabies. Right Hand Cellulitis-POA Tenosynovitis Secondary to Dog bite S/P TDAP Vaccine on April 07 2021 -Hand X ray: No acute fractures. No radiopaque foreign bodies identified. Mild soft tissue edema Blood cultures no growth swelling and tenderness in right hand has improved , no fever or chills Continue Clindamycin, doxycycline given allergy to penicillin Appreciate orthopedics input does not feel pt needs I&D , as no evidence of abscess or pus collection noted on right hand recommends to cont with current regimen of Abx ( changed to PO) Recent COVID Infection Positive COVID screen Asymptomatic Saturating well on room air Patient refuses chest x-ray as asymptomatic No indication for treatment currently isolation d/delfino as pt is more than 10 days from positive test /no symptoms (2) Dog bite: tx outlined as above (3) Lymphangitis: (4) Failure of outpatient treatment: (5) DVT prophylaxis: DVT p: SCDs CODE STATUS Full code Disposition ; will be discharged home in next 1-2 days cellulitis of rt hand improves Admission and Anticipated Discharge Date Admission Date: April 10, 2021 Subjective Follow up visit for Right hand cellulitis due to Dog bite : pt states improvement of pain and swelling on right hand able to move fingers no fever or chills Denies chest pain, shortness of breath, dizziness, nausea, abdominal pain, tingling or numbness of fingers. Review of Systems Review of Systems: All systems reviewed & are unremarkable except as noted in Subjective Physical Exam Physical Exam: Physical exam: General: No acute distress, alert awake oriented x3 HEENT: PERRLA, EOMI, Heart: Regular S1-S2, no carotid bruit, no JVD, no lower extremity edema Lungs: Clear to auscultate, no wheeze or rales Abdomen: Soft nontender, no organomegaly Extremity:Right Hand : bite angelina on the [place] side of right hand , no surrounding edema noted , on dorsal area: minimum swelling and erythema , no active drainage, able to move fingers Neuro: No focal neurological deficit normal speech, normal visual field, Motor strength : normal both upper and lower extremity, sensation intact Psych: Alert awake oriented x3, normal affect Results & Data Results & Data ([facility]) Vital Signs (Past 12 Hours) Vital Signs Temp Pulse Resp BP Pulse Ox 04/12/21 07:12 36.9 C 68 17 119/72 97 (1) Dog bite Encounter type: initial encounter Qualified Code(s): W54.0XXA - Bitten by dog, initial encounter
[2021-04-12] MEDS ORDERED: diphenhydrAMINE Capsule 25 MG CAP PO ONE (21:03)
[2021-04-12] MEDS ORDERED: IBUPROFEN 600 MG TAB PO PRN (21:53)
[2021-04-12] MEDS ORDERED: oxyCODONE HCL IR 5 MG TAB (IMMEDIATE RELEASE) PO PRN (21:53)
[2021-04-12] MEDS: CLINDAMYCIN HCL 150 MG CAP PO SCH (23:09)
[2021-04-13] MEDS: CLINDAMYCIN HCL 150 MG CAP PO SCH ×2 (05:52→11:47)
[2021-04-13] MEDS ORDERED: DOXYCYCLINE HYCLATE 100 MG CAP PO SCH (09:00)
[2021-04-13] MEDS ORDERED: ADVANCED PROBIOTIC 1250 MG CAPSULE PO SCH (09:00)
[2021-04-13] MEDS ORDERED: PANTOprazole 40 MG TAB PO SCH (09:00)
[2021-04-13] MEDS ORDERED: ACETAMINOPHEN 500 MG TAB PO PRN (09:25)
--- NOTE | 2021-04-13 09:30 | Orthopedic Progress Note ---
Date of Service April 13, 2021 Assessment & Plan (1) Animal bite of right hand with infection: Continued improvement after transition overnight to oral antibiotic agents. Recommend continued nonoperative management. Given that she is on oral regimen, she can likely be discharged today per the medical team's discretion. I encouraged her to continue the soaks and motion exercises. Her is a physical therapist can assist with soft tissue edema and joint mobilization. I canceled the n.p.o. again today. We talked about pain management with 1000 mg of Tylenol every 8 hours and [id number] of Motrin every 8 hours, as needed. I discussed my recommendations with the patient. I also asked her to come to see me at the clinic on or about Wednesday for interval exam. She can contact me at the clinic if the hand seems to be worsening before Wednesday. Subjective Marnie reports steady improvement with pain, but with slow improvement of motion. Antibiotics were converted over to oral last evening due to complications with the IV sites.. Denies any fevers chills nor respiratory symptoms. Review of Systems All systems reviewed & are unremarkable except as noted in HPI & below. Physical Exam Right upper extremity: The hand shows continued improvement in the edema about the dorsal punctate wound. The volar side appears to be mostly healed. She remains with tenderness at these areas. She is also mildly tender about the long finger MCP joint. Digital motions improved and that she can actively flex the PIP with reasonable comfort and now can independently move the DIP with no discomfort. She is slightly tender at the palmar MCP joint but does not seem tender along the flexor tendon course in the long finger and through the palm. Constitutional WD/WN, vitals as above no acute distress and not intoxicated appearing Respiratory normal respiratory effort; no labored breathing Cardiovascular Extremities: normal capillary refill Results & Data Results & Data Laboratory Results . Diagnostic Findings . PG Care Time/CCT Total # of Minutes Spent Total Time Spent with Patient: Total time spent is greater than 50% in coordination of care (as documented) at patient's floor/unit and/or counseling patient: Coding Level of Care Code 14876 Subseq Hosp Care Lvl 2 Diagnoses Animal bite of right hand with infection S61.451A; L08.9 Encounter type: initial encounter (1) Animal bite of right hand with infection Encounter type: initial encounter Qualified Code(s): S61.451A - Open bite of right hand, initial encounter; L08.9 - Local infection of the skin and subcutaneous tissue, unspecified
--- NOTE | 2021-04-13 12:39 | Discharge Summary ---
Date of Service April 13, 2021 Admission HPI Per Admitting Provider This is a 55 yr old healthy female who presents to ED / to dog bite on R hand she sustained 5 days ago. 24hr post bite she developed fever and therefore went to urgent care. She was prescribed Augmentin which she has been compliant with the past 4 days. She has increased pain to R hand, swelling, inability to flex and fingers and redness that extends up to the elbow. Due to redness extending to elbow was the reason she decided to head to ED. She has been using OTC tylenol and nsaids for pain. She received Tdap vaccine on wednesday. The dog is not up to date on vaccine against rabies and is a house dog. at bedside and are not concerned and not interested in rabies ppx. She denies f/c/s, dizziness, lightheaded, chest pain, sob, n/v/d, abdominal pain. Overall appetite has been good. She is otherwise healthy and does not take any medications. She denies tobacco use and does use ETOH ~ 3x/week. Principal Diagnosis Right hand cellulitis Dog bite on right hand / Discharge Exam Physical exam: General: No acute distress, alert awake oriented x3 HEENT: PERRLA, EOMI, Heart: Regular S1-S2, no carotid bruit, no JVD, no lower extremity edema Lungs: Clear to auscultate, no wheeze or rales Abdomen: Soft nontender, no organomegaly Extremity:minimum swelling, improvement of erythema on rt hand , no open wound Neuro: No focal neurological deficit normal speech, normal visual field, Motor strength : normal both upper and lower extremity, sensation intact Psych: Alert awake oriented x3, normal affect Discharge Data Allergies Allergy/AdvReac Type Severity Reaction Status Date / Time Penicillins Allergy Itching Verified 04/11/21 15:43 Consultations 04/10/21 18:57 ED Decision to Admit Stat 04/10/21 21:53 Consult Orthopedic Surgery Routine Hospital Course (1) Cellulitis of right hand excluding fingers and thumb: Patient is a 55 yr female who presents with dog bite which she sustained on Thursday 04/05. Patient received Augmentin on 04/06, received TDAP vaccine 04/07. Dog is not vaccinated against rabies. Right Hand Cellulitis-POA Tenosynovitis Secondary to Dog bite S/P TDAP Vaccine on April 07 2021 -Hand X ray: No acute fractures. No radiopaque foreign bodies identified. Mild soft tissue edema Blood cultures no growth swelling and tenderness in right hand has improved , no fever or chills Continue Clindamycin, doxycycline given allergy to penicillin( itching ) needs 5 more days of tx Appreciate orthopedics input no indication for I&D , as no evidence of abscess or pus collection noted on right hand complete ABx course Ortho follow up for wound check next week Recent COVID Infection Positive COVID screen Asymptomatic Saturating well on room air No indication for treatment currently (2) Dog bite: tx outlined as above (3) Lymphangitis: (4) Failure of outpatient treatment: (5) DVT prophylaxis: DVT p: SCDs CODE STATUS Full code Disposition ; discharged to home today Total Time Total Time Spent Total Time Spent (In Minutes): 35mins Total Time Includes: Discharge Planning and Medication Reconciliation Discharge Plan Discharge Items Patient Disposition: Home - Self-Care Reason For Visit: DOG BITE; HAND INFECTION Discharge Diagnosis: Right hand cellulitis Dog bite on right hand / Activity: Resume your previous activity Non-emergency contact: Surgeon Call non-emergency contact if: your pain is worsening, your temperature is above 101, your wound has increased redness and your wound has increased drainage Follow-up/Referrals: Jake Farrar MD [Surgeon] - 04/16/21 Marie Gonzalez DO [Primary Care Provider] - Diet: Regular Addtl Attending Provider Instructions: Continue warm water soaks and range of motion exercises. Use Acetaminophen + Motrin (Ibuprofen) for pain control. Contact the Orthopedic Clinic if symptoms seem to be worsening. Follow up with Orthopedics Dr Farrar in office on Wednesday04/16/21 -please call office to confirm the appointment Addtl Joint Sealer Provider Instructions: Please take all medications as instructed on discharge list below. It is recommended that you follow-up with your primary care physician within 1-2 weeks of hospital discharge to ensure you are still doing well. Please call if you have any questions or problems. You can reach a [facility] hospitalist on duty at [facility] 24 hours a day by calling [phone] PLEASE TAKE PROBIOTICS ( OVER THE COUNTER ) WHILE TAKING ANTIBIOTICS TO PREVENT DIARRHEA /LOOSE STOOL Pending Studies at Discharge: No Stand-Alone Forms: My [facility] [employer], Smoking Cessation Medications and DC Order Prescriptions: New doxycycline hyclate 100 mg Capsule 100 mg PO BID 5 Days Qty: 10 RF: 0 clindamycin HCl 150 mg Capsule 150 mg PO Q6 5 Days Qty: 20 RF: 0 acetaminophen 500 mg Tablet 1,000 mg PO TID PRN (Reason: pain) Qty: 0 RF: 0 ibuprofen 600 mg Tablet 600 mg PO Q6H PRN (Reason: pain) Qty: 60 RF: 0 Discontinued naproxen sodium [Aleve] 220 mg Tablet 440 - 660 mg PO Q12H PRN (Reason: Pain) RF: 0 amoxicillin-pot clavulanate 875-125 mg tablet 1 tab PO BID RF: 0 Discharge Orders: Discharge Order (Routine); Ordered 04/13/21 Ordered By: Holly Clemons Admission Data Admit Date/Time: 04/12/21 14:34 Attending Provider: Holly Clemons Admit Provider: Randell Alberto Primary Care Provider: Marie Gonzalez Other Providers: Randell Alberto ; Jake Farrar ; Marc Pate Other Interventions: Discharge Summary Assessment (RN) Last Done: 04/13/21 11:35
--- NOTE | 2021-04-21 14:44 | Coding Query ---
CODING QUERY To promote full compliance with coding requirements relating to patient care, provider participation is requested in all cases of power plant engineer uncertainty. Please assist us with the question(s) below: Coding Question(s): 1. The Discharge Summary documents Right Hand Cellulitis and documents Tenosynovitis, and the Orthopedic Consultation documents Animal bite of right hand with infection, and documents, "The lingering concern is if there is any flexor tenosynovitis that would not resolve with antibiotics in the long finger". Please specify below, in your clinical opinion. ( ) Right hand Cellulitis and Tenosynovitis were both treated the same ( ) Right hand Cellulitis was treated more than the Tenosynovitis ( ) Tenosynovitis of right hand was treated more than the cellulitis ( x) Other: Please Specify unable to determine 2. The H&P documents, "She was covid positive in ER. Patinet currently asymptomatic. Saturating fine on room air.Will get cxr. Patient says she was sick with Covid in January. Probably false positive form infection in January. But will do covid isolation for now" and the Discharge Summary documents, "Recent COVID Infection Positive COVID screen Asymptomatic Saturating well on room air No indication for treatment currently". Please specify below, in your clinical opinion. ( ) the positive COVID-19 test was likely a false positive ( ) Positive Covid-19 test, Asymptomatic COVID-19 (x ) Other: Please Specify unable to determine Physician's Response(s): Thank you Katina Hammer Principal Diagnosis: "that condition established after study, to be chiefly responsible for occasioning the admission of the patient to the hospital for care." Co-Existing Principal Diagnosis: "when two or more diagnoses equally meet the criteria for principal diagnosis as determined by the circumstances of admission, diagnostic work up, and/or therapy provided, and the Alphabetic Index, Tabular List, or another coding guideline does not provide sequencing direction, any one of the diagnoses may be sequenced first." "When the physician has documented what appears to be a current diagnosis in the body of the record, but has not included the diagnosis in the final diagnostic statement, the physician should be asked whether the diagnosis should be added." (Source Coding Clinic 2 QTR90. p3-4) HARRY
== END 2021-04-13 12:05 | disposition home or self-care (01) | DRG 603 ==
LOC: ED 16:28 → 3N 16:28 → SUATTDRO 18:58 → 3N 21:01